=== PATIENT | female | born 1960 | race Caucasian/White ===

== ENCOUNTER 2017-06-05 16:07 | Emergency (ER) | payer BC ==
[~2017-06-05] VITALS: Ht 165.1 cm; Wt 127.0 kg
[2017-06-05] MEDS ORDERED: ACETAMINOPHEN WITH CODEINE 300/30MG TABLET PO ONE (18:15)
[2017-06-05 19:11] LABS: BASOPHILS % 0.6 % (0.0-2.0); EOSINOPHILS % 4.4 % (0.0-5.0); HEMOGLOBIN. 11.4 g/dL (12.0-16.0); LYMPHOCYTES % 16.4 % (20.0-50.0); MEAN CORPUSCULAR HEMOGLOBIN 28.4 pg (28.0-32.0); MEAN CORPUSCULAR VOLUME 87.5 fL (81.0-99.0); MEAN PLATELET VOLUME 9.7 fl (7.4-10.4); MONOCYTES % 9.2 % (2.0-8.0); NEUTROPHILS % 69.4 % (40.0-76.0); PLATELET 191 x1000/uL (130-400); RED CELL DISTRIBUTION WIDTH 14.1 % (11.6-14.6)
[2017-06-05 19:13] LABS: INR 1.1
[2017-06-05 19:20] LABS: CARBON DIOXIDE 30 mEq/L (21-32); CHLORIDE 105 mEq/L (98-107)
[2017-06-05 20:06] VITALS: BP 145/83
== END 2017-06-05 20:06 | disposition home or self-care (01) ==
LOC: ER 18:28
DX: I83.029 Varicose veins of left lower extremity with ulcer of unspecified site (principal); L03.116 Cellulitis of left lower limb; L97.929 Non-pressure chronic ulcer of unspecified part of left lower leg with unspecified severity; M06.9 Rheumatoid arthritis, unspecified; Z86.718 Personal history of other venous thrombosis and embolism
CPT/HCPCS: 36415; 80053; 85025; 85610; 93971; 99285

== ENCOUNTER 2017-09-06 10:04 | Observation (INO) | payer BC ==
[~2017-09-06] VITALS: Ht 165.1 cm; Wt 127.0 kg
[2017-09-06] MEDS: VANCOMYCIN 1 G PREMIX 200 ML IV SCH ×2 (11:00→13:06)
[2017-09-06 11:58] LABS: BASOPHILS % 1.1 % (0.0-2.0); EOSINOPHILS % 10.6 % (0.0-5.0); HEMATOCRIT. 34.5 % (36.0-48.0); HEMOGLOBIN. 11.4 g/dL (12.0-16.0); LYMPHOCYTES % 20.2 % (20.0-50.0); MEAN CORPUSCULAR HEMOGLOBIN 28.2 pg (28.0-32.0); MEAN CORPUSCULAR VOLUME 85.2 fL (81.0-99.0); MEAN PLATELET VOLUME 9.6 fl (7.4-10.4); NEUTROPHILS % 59.1 % (40.0-76.0); PLATELET 204 x1000/uL (130-400); RED BLOOD CELL COUNT 4.05 mill/uL (4.2-5.4); RED CELL DISTRIBUTION WIDTH 15.1 % (11.6-14.6)
[2017-09-06 12:04] LABS: CHLORIDE 103 mEq/L (98-107)
[2017-09-06 12:05] LABS: PROTHROMBIN TIME 10.7 sec (9.4-11.6)
[2017-09-06 12:20] LABS: HCG SCREEN NEGATIVE
[2017-09-06] MEDS ORDERED: PIPERACILLIN/TAZ 3.375G PREMIX 50 ML IV NR (13:56)
[2017-09-06] MEDS ORDERED: PIPERACILLIN/TAZOBACTAM 3.375GM/50ML PREMIX IV ONE (14:00)
[2017-09-06] MEDS ORDERED: ENOXAPARIN 120MG/0.8ML SYR SUBCUT ONE (14:30)
[2017-09-06] MEDS ORDERED: MAGNESIUM/ALUMINUM HYDROXIDE/SIMETHICONE 30ML UDC PO PRN (15:15)
[2017-09-06] MEDS ORDERED: NA PHOS,M-B/NA PHOS,DI-BA ENEMA 118ML PR PRN (15:15)
[2017-09-06] MEDS ORDERED: CLONIDINE 0.1MG TABLET PO PRN (15:15)
[2017-09-06] MEDS ORDERED: DOCUSATE SODIUM 100MG CAPSULE PO PRN (15:15)
[2017-09-06] MEDS ORDERED: IPRATROPIUM/ALBUTEROL 0.5-3(2.5)MG/3ML NEB INH PRN (15:15)
[2017-09-06] MEDS ORDERED: ACETAMINOPHEN 325MG TABLET PO PRN (15:15)
[2017-09-06] MEDS ORDERED: ONDANSETRON HCL 4MG/2ML VIAL IV PRN (15:15)
[2017-09-06] MEDS ORDERED: HYDROCODONE/ACETAMINOPHEN 5/325MG TABLET PO PRN ×2 (15:15→17:00)
[2017-09-06] MEDS ORDERED: ENOXAPARIN 150MG/ML SYR SUBCUT ONE (15:45)
[2017-09-06 17:00] VITALS: BP 144/72
[2017-09-06 17:15] VITALS: BP 144/72
[2017-09-06] MEDS ORDERED: VANCOMYCIN 1 G PREMIX 200 ML IV NR (19:30)
[2017-09-06 20:00] VITALS: BP 111/61
[2017-09-06] MEDS: GABAPENTIN 100MG CAPSULE PO SCH (21:32)
[2017-09-06] MEDS ORDERED: GABAPENTIN 100MG CAPSULE PO SCH (22:00)
[2017-09-06] MEDS ORDERED: AMLO2.5T45 PO (22:22)
[2017-09-06] MEDS ORDERED: LEVO125T8 MT (22:22)
[2017-09-06] MEDS ORDERED: SERT25TA74 PO (22:22)
[2017-09-06] MEDS ORDERED: GABA-531 MT (22:22)
[2017-09-07] VITALS: BP 129/73
[2017-09-07 04:00] VITALS: BP 109/67
[2017-09-07 05:49] LABS: CLARITY URINE CLEAR (CLEAR); COLOR URINE YELLOW (YELLOW); KETONES URINE NEGATIVE (NEGATIVE); LEUKOCYTE ESTERASE URINE NEGATIVE (NEGATIVE); NITRITE URINE NEGATIVE (NEGATIVE); OCCULT BLOOD URINE NEGATIVE (NEGATIVE); PROTEIN URINE NEGATIVE (NEGATIVE); SPECIFIC GRAVITY URINE 1.015 (1.005-1.030); UROBILINOGEN URINE 0.2 E.U./dL (0.2-1.0)
[2017-09-07] MEDS ORDERED: ENOXAPARIN 150MG/ML SYR SUBCUT SCH (06:00)
[2017-09-07] MEDS: VANCOMYCIN 1250MG in DEXTROSE 5% WATER 250ML IV SCH ×2 (06:03→17:29)
[2017-09-07] MEDS: GABAPENTIN 100MG CAPSULE PO SCH ×3 (06:04→22:39)
[2017-09-07 06:23] LABS: *AMPHETAMINES SCREEN URINE NEGATIVE (NEGATIVE); *BARBITURATES SCREEN URINE NEGATIVE (NEGATIVE); *BENZODIAZEPINES SCREEN URINE NEGATIVE (NEGATIVE); *COCAINE SCREEN URINE NEGATIVE (NEGATIVE)
[2017-09-07 06:24] LABS: METHADONE URINE SCREEN NEGATIVE (NEGATIVE)
[2017-09-07 06:27] LABS: CANNABINOID URINE SCREEN NEGATIVE (NEGATIVE); OPIATES URINE SCREEN NEGATIVE (NEGATIVE); PHENCYCLIDINE URINE SCREEN NEGATIVE (NEGATIVE)
[2017-09-07] MEDS ORDERED: LIDOCAINE HCL/PF 1% 10 MG/ML 5ML VIAL ONE (07:22)
[2017-09-07 08:00] VITALS: BP 146/87
[2017-09-07 11:50] VITALS: BP 133/74
[2017-09-07 16:00] VITALS: BP 146/82
[2017-09-07] MEDS: ENOXAPARIN 120MG/0.8ML SYR SUBCUT SCH (18:20)
[2017-09-07 20:00] VITALS: BP 135/77
[2017-09-07] MEDS ORDERED: LEVOFLOXACIN 500MG PREMIX 100 ML IV SCH (22:00)
[2017-09-08] VITALS: BP 118/70
[2017-09-08 04:00] VITALS: BP 123/60
[2017-09-08 06:06] LABS: BASOPHILS % 0.7 % (0.0-2.0); EOSINOPHILS % 11.6 % (0.0-5.0); HEMATOCRIT. 34.3 % (36.0-48.0); HEMOGLOBIN. 11.3 g/dL (12.0-16.0); LYMPHOCYTES % 29.8 % (20.0-50.0); MEAN PLATELET VOLUME 9.5 fl (7.4-10.4); MONOCYTES % 8.6 % (2.0-8.0); NEUTROPHILS % 49.3 % (40.0-76.0); PLATELET 220 x1000/uL (130-400); RED BLOOD CELL COUNT 4.03 mill/uL (4.2-5.4); RED CELL DISTRIBUTION WIDTH 14.8 % (11.6-14.6)
[2017-09-08 06:12] LABS: CHLORIDE 105 mEq/L (98-107)
[2017-09-08] MEDS: VANCOMYCIN 1250MG in DEXTROSE 5% WATER 250ML IV SCH ×2 (07:03→17:08)
[2017-09-08] MEDS: GABAPENTIN 100MG CAPSULE PO SCH ×2 (07:08→13:56)
[2017-09-08] MEDS: ENOXAPARIN 120MG/0.8ML SYR SUBCUT SCH ×2 (07:08→17:08)
[2017-09-08] MEDS ORDERED: SERTRALINE HCL 25MG TABLET PO SCH (16:30)
[2017-09-08 19:33] VITALS: BP 120/70
[2017-09-08 20:00] VITALS: BP 163/83
[2017-09-09] MEDS ORDERED: LEVOTHYROXINE SODIUM 125MCG TABLET PO SCH (07:20)
== END 2017-09-08 20:40 | disposition home or self-care (01) ==
LOC: ER 10:48 → INTOOBSV 14:39 → 6EST 14:39 → ENRESERV 14:47 → CANRESERV 14:50 → SUPCPDRO 15:13 → EDBEDREQSVC 16:04 → EDBEDREQ 16:47 → ER 16:50 → ENRESERV 16:54
PROVIDERS: ADMIT Internal Medicine; ATTEND Internal Medicine
DX: L03.116 Cellulitis of left lower limb (principal); E03.9 Hypothyroidism, unspecified; E66.01 Morbid (severe) obesity due to excess calories; F32.9 Major depressive disorder, single episode, unspecified; I11.9 Hypertensive heart disease without heart failure; I82.819 Embolism and thrombosis of superficial veins of unspecified lower extremity; M32.9 Systemic lupus erythematosus, unspecified; I51.7 Cardiomegaly; M41.9 Scoliosis, unspecified; M79.7 Fibromyalgia
CPT/HCPCS: 36415; 36569; 71045; 76937; 77001; 80048; 80053; 80202; 80305; 81003; 83605; 83880; 84443; 84484; 84703; 85025; 85379; 85610; 87040; 87070; 87077; 87205; 93005; 93306; 93923; 93971; 96365; 96366; 96367; 96372; 99285; C1725; G0378; J1650; J1956; J2543; J3370; J3490; J7050; J7060

== ENCOUNTER 2017-12-27 17:00 | Emergency (ER) | payer BC ==
[~2017-12-27] VITALS: Ht 165.1 cm; Wt 141.0 kg
[~2017-12-27 17:00] MED LIST: AMLO2.5T45 PO; GABA-531 MT; LEVO125T8 MT; SERT25TA74 PO
[2017-12-27 17:58] LABS: BASOPHILS % 0.9 % (0.0-2.0); EOSINOPHILS % 9.8 % (0.0-5.0); HEMATOCRIT. 34.9 % (36.0-48.0); HEMOGLOBIN. 11.6 g/dL (12.0-16.0); LYMPHOCYTES % 20.3 % (20.0-50.0); MEAN CORPUSCULAR HEMOGLOBIN 28.4 pg (28.0-32.0); MEAN CORPUSCULAR VOLUME 85.2 fL (81.0-99.0); MEAN PLATELET VOLUME 9.4 fl (7.4-10.4); MONOCYTES % 10.1 % (2.0-8.0); NEUTROPHILS % 58.9 % (40.0-76.0); PLATELET 229 x1000/uL (130-400); RED CELL DISTRIBUTION WIDTH 14.9 % (11.6-14.6)
[2017-12-27 18:03] LABS: CHLORIDE 107 mEq/L (98-107)
[2017-12-27 22:10] VITALS: BP 151/87
== END 2017-12-27 22:43 | disposition home or self-care (01) ==
LOC: ER 19:11
DX: L03.116 Cellulitis of left lower limb (principal); I87.2 Venous insufficiency (chronic) (peripheral); I10 Essential (primary) hypertension; E05.90 Thyrotoxicosis, unspecified without thyrotoxic crisis or storm; M32.9 Systemic lupus erythematosus, unspecified; Z91.018 Allergy to other foods; Z88.5 Allergy status to narcotic agent
CPT/HCPCS: 36415; 73590; 80053; 85025; 99285; Z7610